=== PATIENT | male | born 1950 | race Caucasian/White ===

== ENCOUNTER → 2021-05-08 08:43 | Outpatient (CLI) | payer OTHER, SELFPAY ==
[2021-05-08 10:11] LABS: COVID19 -Nasal RAPID Negative (Negative)
== END ==
PROVIDERS: Referring Provider Nurse Practitioner; Visit Provider Nurse Practitioner
DX: Z20.822 Contact with and (suspected) exposure to COVID-19 (principal); Z51.81 Encounter for therapeutic drug level monitoring; Z79.899 Other long term (current) drug therapy
CPT/HCPCS: 87635; C9803

== ENCOUNTER → 2021-05-08 08:45 | Outpatient (CLI) | payer OTHER, SELFPAY | PROVIDERS: Referring Provider Nurse Practitioner; Visit Provider Nurse Practitioner | DX: Z51.81 Encounter for therapeutic drug level monitoring (principal); Z79.899 Other long term (current) drug therapy ==

== ENCOUNTER → 2021-05-14 08:29 | Outpatient (CLI) | payer OTHER, SELFPAY ==
[2021-05-14 09:55] LABS: COVID19 -Nasal RAPID Negative (Negative)
== END ==
PROVIDERS: PCP Family Medicine; Referring Provider Internal Medicine; Visit Provider Internal Medicine
DX: Z20.822 Contact with and (suspected) exposure to COVID-19 (principal)
CPT/HCPCS: 87635; C9803

== ENCOUNTER → 2021-05-14 08:32 | Outpatient (CLI) | payer OTHER, SELFPAY ==
--- NOTE | 2021-05-20 09:13 | PM.PFT.1 ---
Pulmonary Function Test Referral & Results Date Patient Seen: 05/14/21 Requesting provider: Reji Wright Results: The spirometry demonstrates an FVC of 2.52 L which is 55% of predicted. The FEV1 was measured at 1.89 L which is 56% of predicted. The FEV1/FVC ratio was 75 which is 102% of predicted. The diffusing capacity was measured at 27.58 which is 81% of predicted. No hemoglobin value was provided, so no correction for potential anemia could be made, if appropriate. Interpretation: This study demonstrates moderate obstructive lung disease based on reduction FEV1 although FEV1/FVC ratio is preserved. No lung volumes were performed to ascertain whether not any restrictive lung disease is present that might explain the reduction in FEV1. Diffusing capacity is minimally reduced Compared to PFTs performed on May 08, 2021, current study is essentially unchanged
== END ==
PROVIDERS: PCP Family Medicine; Referring Provider Nurse Practitioner; Visit Provider Nurse Practitioner
DX: J98.8 Other specified respiratory disorders (principal); Z51.81 Encounter for therapeutic drug level monitoring; Z20.822 Contact with and (suspected) exposure to COVID-19; Z87.891 Personal history of nicotine dependence
CPT/HCPCS: 87635; 94010; 94729; C9803

== ENCOUNTER → 2022-10-22 12:38 | Outpatient (CLI) | payer OTHER, SELFPAY ==
[2022-10-22 13:55] LABS: COVID19 -Nasal RAPID Negative (Negative)
== END ==
PROVIDERS: PCP Family Medicine; Referring Provider Internal Medicine; Visit Provider Internal Medicine
DX: Z20.822 Contact with and (suspected) exposure to COVID-19 (principal)
CPT/HCPCS: 87635; C9803

== ENCOUNTER → 2022-10-22 12:39 | Outpatient (CLI) | payer OTHER, SELFPAY ==
--- NOTE | 2022-10-27 08:05 | P.PFT.S_ITS ---
Pulmonary Function Test Referral & Results Date Patient Seen: 10/22/22 Requesting provider: Helena Kearns Results: The spirometry demonstrates an FVC of 2.43 L which is 53% of predicted. The FEV1 was measured at 1.61 L which is 40% of predicted. The FEV1/FVC ratio was 66 which is 90% of predicted. No bronchodilator was administered No lung volumes were performed The diffusing capacity was measured at 22.98 which is 68% of predicted. No hemoglobin value was provided, so no correction for potential anemia could be made, if appropriate. Interpretation: This study which was done with forced spirometry alone demonstrates probably moderate obstructive lung disease based on reduction FEV1 which is at only 48% of predicted. However FEV1/FVC ratio is relatively preserved. This raises azul spicion for possible restrictive lung disease also being present which can not be determined from this study as no lung volumes were performed Diffusing capacity is moderately reduced suggesting disease at the capillary alveolar level as well, unless patient is anemic. Clinical correlation suggested
== END ==
PROVIDERS: Referring Provider Nurse Practitioner; Visit Provider Nurse Practitioner
DX: Z79.899 Other long term (current) drug therapy (principal); Z20.822 Contact with and (suspected) exposure to COVID-19; Z87.891 Personal history of nicotine dependence; J98.8 Other specified respiratory disorders
CPT/HCPCS: 87635; 94010; 94729; C9803